=== PATIENT | female | born 1960 | race African-American/Black ===

== ENCOUNTER 2024-12-04 14:46 | Emergency (ER) | payer MEDICAID ==
[~2024-12-04] VITALS: Ht 167.6 cm; Wt 70.0 kg
[2024-12-04 14:48] VITALS: BP 114/71; PULSE 98; RESP 18; TEMP 38; O2SAT 94
[2024-12-04] MEDS ORDERED: METF-414 MT (14:50)
[2024-12-04] MEDS ORDERED: AZIT250T12 MT (16:20)
[2024-12-04] MEDS ORDERED: AMOX1TAB16 MT (16:20)
== END 2024-12-04 16:38 | disposition home or self-care (01) ==
LOC: ER 14:46
DX: J18.9 Pneumonia, unspecified organism (principal); E11.9 Type 2 diabetes mellitus without complications; Z79.899 Other long term (current) drug therapy
CPT/HCPCS: 71045; 99283